=== PATIENT | male | born 1995 | race Caucasian/White ===

== ENCOUNTER 2019-10-03 21:10 | Emergency (ER) | payer SELFPAY ==
[2019-10-03 21:19] VITALS: BP 129/87; PULSE 88; RESP 18; TEMP 36.6; O2SAT 100; BMI 16.9
[2019-10-03] MEDS: diphenhydrAMINE 50 mg/mL SDV 1mL IVP (21:30)
[2019-10-03] MEDS: sodium chloride 0.9% 1,000 ML 999 ML IV (21:30)
[2019-10-03 21:31] VITALS: BP 130/81; PULSE 75; RESP 17; O2SAT 99
--- NOTE | 2019-10-03 21:45 | ED_ITS ---
HPI - Allergic Reaction General: Chief complaint: Allergic Reaction Stated complaint: bee sting/allergic Time Seen by Provider: 10/03/19 21:22 Source: patient Mode of arrival: ambulatory Limitations: no limitations History of Present Illness: MD complaint: allergic reaction Onset (ago): hour(s) Exposure: insect bite Known history of allergy to: 24-year-old male who states he had while staying hour before arrival states he started have some slight swelling of the site all some difficulty breathing. Patient took Benadryl at home. Patient states he still has some scratchiness in his throat but he is in no distress here. He has no signs of anaphylaxis currently. Associated symptoms: Deny abdominal pain, nausea or vomiting Severity: mild Treatment prior to arrival: benadryl Review of Systems Const: Denies: fever(s), chills, body aches or change in appetite Eyes: Denies: blurry vision or eye discomfort ENMT: Denies: throat pain or dental pain Card: Denies: chest pain Resp: Reports: dyspnea GI: Denies: abdominal pain, nausea, vomiting or diarrhea : Denies: dysuria Musc: Denies: neck pain or back pain Skin/Breast: Denies: rash Neuro: Denies: headache(s) Psych: Denies: depression Akin/Lymph: Denies: easy bruising All/Imm: Denies: urticaria Physical Exam Const: COMMON NORMALS: no acute distress, patient oriented x3 and healthy appearing HENMT: COMMON NORMALS: normocephalic and atraumatic HEAD & SCALP: normocephalic and atraumatic Eye: COMMON NORMALS: Equal, round and reactive pupils present and EOMs intact bilaterally PUPIL: Yes Equal, round and reactive pupils present Neck/C-Spine: COMMON NORMALS: full ROM and supple Chest: COMMONS NORMALS: normal inspection of the chest and normal palpation of entire chest wall Resp: COMMON NORMALS: normal respiratory effort, No retractions, No use of accessory muscles and clear to auscultation bilaterally AUSCULTATION: clear to auscultation bilaterally Cardio: COMMON NORMALS: regular rate, regular rhythm and No murmurs present (Cardio) RATE: regular rate RHYTHM: regular rhythm GI: COMMON NORMALS: Normal to inspection, nondistended, normoactive bowel sounds present, Soft to palpation, non-tender and no masses PALPATION: Yes Soft to palpation Extremity: COMMON NORMALS: normal to inspection and full ROM Neuro: COMMON NORMALS: patient oriented x3, moves all extremities and no focal motor deficits Psych: COMMON NORMALS: mental status grossly normal, Normal thought process present and cooperative THOUGHT PROCESS: Normal thought process present Skin: COMMON NORMALS: no rashes or lesions noted and no wounds NARRATIVE SKIN EXAM: To wasp stings to lower leg on the left. Slight erythema GENERAL SKIN EXAM: no rashes or lesions noted Course Vital Signs: Vital signs: Vital Signs Temperature 97.8 F 10/03/19 21:19 Pulse Rate 65 10/03/19 22:20 Respiratory Rate 18 10/03/19 22:20 Blood Pressure 116/76 10/03/19 22:20 Pulse Oximetry 99 10/03/19 22:20 MDM - Allergic Reaction MDM Narrative: Medical decision making narrative: Patient presents with an allergic reaction from an insect sting. Patient has no signs of difficulty breathing or anaphylaxis. Patient given Benadryl and Solu-Medrol here and feels improved. He is stable for discharge is return if worsening. Discharge Plan Discharge Patient Disposition: Home, Self-Care Clinical Impression: Allergic reaction Qualifiers: Encounter type: initial encounter Qualified Code(s): T78.40XA - Allergy, unspecified, initial encounter Condition: Stable Discharge Orders: Discharge Order (Routine); Ordered 10/03/19 Ordered By: Deion Young Discharge Diet: Advance as tolerated Discharge Activity: Resume usual activity Patient Instructions: Allergic Reaction Coding Level of Care Code ED Cryptologic Linguist for Saad Fwconstantine Exam Comprehensive
[2019-10-03 22:20] VITALS: BP 116/76; PULSE 65; RESP 18; O2SAT 99
[2019-10-03 22:41] VITALS: BP 120/81; PULSE 59; RESP 17; O2SAT 100
== END 2019-10-03 22:42 | disposition home or self-care (01) ==
LOC: ER 22:45
PROVIDERS: Emergency Provider Emergency Medicine
DX: T78.40XA Allergy, unspecified, initial encounter (principal)
CPT/HCPCS: 12345; 96361; 96374; 96375; 99282; 99283; J1200; J2930; J7030

== ENCOUNTER 2019-11-04 16:41 | Emergency (ER) | payer SELFPAY ==
[2019-11-04 16:49] VITALS: BP 118/68; PULSE 106; RESP 18; TEMP 37; O2SAT 98; BMI 17.6
--- NOTE | 2019-11-04 17:17 | ED_ITS ---
HPI - Skin/Abscess/Foreign Bdy General: Chief complaint: Skin/Abscess/Foreign Body Stated complaint: spider bite Time Seen by Provider: 11/04/19 17:11 Source: patient Mode of arrival: ambulatory Limitations: no limitations Review of Systems General: Reports: 10 or more systems reviewed and unremarkable except in HPI and below Skin/Breast: Reports: erythema Physical Exam Const: COMMON NORMALS: no acute distress and patient oriented x3 GENERAL APPEARANCE: cooperative HENMT: COMMON NORMALS: normocephalic and Normal external nose present HEAD & SCALP: normal to inspection and normocephalic NOSE: Normal external nose present MOUTH: Normal oral and palatal mucosa present Eye: GENERAL EYE: appearance normal, both eyes and all related structures Neck/C-Spine: COMMON NORMALS: full ROM Chest: COMMONS NORMALS: normal inspection of the chest Resp: COMMON NORMALS: normal respiratory effort EFFORT & INSPECTION: Yes able to speak in complete sentences Cardio: COMMON NORMALS: regular rate and regular rhythm RATE: regular rate RHYTHM: regular rhythm GI: COMMON NORMALS: non-tender Back/Pelvis: COMMON NORMALS: thoracic and lumbar spine normal to inspection Extremity: COMMON NORMALS: normal to inspection Neuro: COMMON NORMALS: patient oriented x3 and moves all extremities Psych: COMMON NORMALS: mental status grossly normal and cooperative Skin: NARRATIVE SKIN EXAM: 12 cm area of redness to left upper thigh, 3 cm centeral induration with punctate draining lesion Procedures Abscess I/D Site: lower extremity Side (if applicable): left Local Anesthetic: lidocaine 2% Amount of anesthesia used (mL): 10 Technique: incised with #11 blade Amount of fluid expressed (mL): 5 Irrigation: Yes Packing used?: none Course Vital Signs: Vital signs: Vital Signs Temperature 98.6 F 11/04/19 16:49 Pulse Rate 106 H 11/04/19 16:49 Respiratory Rate 18 11/04/19 16:49 Blood Pressure 118/68 11/04/19 16:49 Pulse Oximetry 98 11/04/19 16:49 MDM - Skin/Abscess/Foreign Bdy MDM Narrative: Medical decision making narrative: 24-year-old male patient comes in with a abscess to the left upper thigh. On exam patient has a large area of redness approximately 12 cm with a center indurated lesion. Vital signs are normal. Respirations are even lungs are clear to auscultation. Differential diagnosis includes abscess, cellulitis, local reaction insect bite. Under local anesthetic of 2% lidocaine and incision and drainage was done. Patient tolerated well. Reviewed post procedure care and need for follow-up. Patient reported understanding. Discharge Plan Discharge Patient Disposition: Home Clinical Impression: Abscess of skin or subcutaneous tissue Qualifiers: Site of cutaneous abscess: extremity Site of cutaneous abscess of extremity: lower extremity Laterality: left Qualified Code(s): L02.416 - Cutaneous abscess of left lower limb Condition: Stable Prescriptions: New Bactrim DS 800-160 mg tablet 1 tab PO BID 10 Days Qty: 20 RF: 0 ibuprofen 600 mg tablet 600 mg PO Q6H PRN (Reason: fever or pain) Qty: 20 RF: 0 Discharge Orders: Discharge Order (Routine); Ordered 11/04/19 Ordered By: Artur Bo Discharge Diet: Usual diet Discharge Activity: Increase activity as tolerated Patient Instructions: Abscess Incision and Drainage (ED) Activity Restrictions/Additional Instructions: Off work tomorrow. Use warm moist packs to the area. Drink plenty of water with medication. Acetaminophen and ibuprofen for pain. Take antibiotics as directed. Follow-up with primary care as needed. Return to the emergency department for new concerns. Stand Alone Forms: Work/School Release Coding Level of Care Code ED Sow Farm Barn Technician for Saad Fwconstantine Exam Comprehensive
[2019-11-04] MEDS: sulfamethoxazole-trimeth DS 160-800 mg Tablet 1 TAB PO (17:27)
[2019-11-04] MEDS: HYDROcodone-acetaminophen 7.5-325 mg Tablet 1 TAB PO (17:27)
[2019-11-04] MEDS: lidocaine 2% INJ 20 mL INJECTION (17:28)
[2019-11-04 18:04] VITALS: BP 121/62; PULSE 90; RESP 18; O2SAT 99
== END 2019-11-04 18:01 | disposition home or self-care (01) ==
PROVIDERS: Emergency Provider Nurse Practitioner Family
DX: L02.416 Cutaneous abscess of left lower limb (principal)
CPT/HCPCS: 10060; 12345; 87070; 87077; 87186; 87205; 99282; 99283

== ENCOUNTER 2020-01-18 18:28 | Emergency (ER) | payer SELFPAY ==
[2020-01-18 18:31] VITALS: BP 127/73; PULSE 92; RESP 16; TEMP 36.4; O2SAT 100; BMI 17.2
--- NOTE | 2020-01-18 18:36 | XR_ITS ---
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 This appliance ap pears proper in position and is intact. The joint spaces appear well preserved and no focal bony abnormality is identified. No soft tissue abnormality. XR/XR knee RT 3V* [id number] IMPRESSION: Status post intramedullary anastacia as above. No acute abnormality identified.
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
[2020-01-18] MEDS: HYDROcodone-acetaminophen 5-325 mg Tablet 1 TAB PO (19:26)
--- NOTE | 2020-01-19 09:42 | DCPLANNER ---
bridge manager had message to schedule a follow up appointment for patient with ortho. bridge manager called the ortho clinic, spoke with Pat, gave clinic patients information. bridge manager was told that patients information would be printed and reviewed. Clinic will call patient with appointment information.
--- NOTE | 2020-01-26 15:32 | DCPLANNER ---
Patient had a follow up appointment scheduled for 01.23.20 with ortho - patient did attend appointment.
== END 2020-01-18 19:46 | disposition home or self-care (01) ==
PROVIDERS: Emergency Provider Emergency Medicine
DX: S83.91XA Sprain of unspecified site of right knee, initial encounter (principal); X58.XXXA Exposure to other specified factors, initial encounter
CPT/HCPCS: 12345; 29530; 73562; 99283; E0114

== ENCOUNTER → 2020-01-23 10:14 | Outpatient (BNVA) | payer SELFPAY | PROVIDERS: Referring Provider Emergency Medicine; Visit Provider Specialist | DX: S83.91XA Sprain of unspecified site of right knee, initial encounter (principal); X58.XXXA Exposure to other specified factors, initial encounter | CPT/HCPCS: 73560; 73565 ==

== ENCOUNTER 2020-01-23 13:47 | Outpatient (CLI) | payer SELFPAY | END 2020-01-23 13:48 | disposition home or self-care (01) | LOC: SPT 13:48 | PROVIDERS: Visit Provider Specialist | DX: Z46.89 Encounter for fitting and adjustment of other specified devices (principal); M25.561 Pain in right knee | CPT/HCPCS: L1812 ==

== ENCOUNTER 2020-01-25 16:39 | Outpatient (CLI) | payer SELFPAY ==
--- NOTE | 2020-01-25 16:45 | MR_ITS ---
WS: [id number] MRI RIGHT KNEE NONCONTRAST TECHNIQUE: Axial PD, coronal PD fat sat, coronal PD, sagittal PD, and sagittal PD fat-sat images obta ined. CLINICAL INFORMATION: M25.569 - Pain in unspecified knee COMPARISON: None. FINDINGS: Postoperative changes intramedullary anastacia and screw fixation right femur. Susceptibility artifact from hardware degrades some images. Distal quadriceps and patella tendons are intact. Hypertrophic patella. Anterior and posterior cruci ate ligaments are intact. Mild chronic narrowing of the medial and lateral joint compartments worse i nvolving the medial joint compartment. Mild chronic thinning of the meniscus. No acute appearing meni scal tears. Normal patella cartilage. Patella is normal. No subchondral edema. Normal popliteal fossa. Medial and lateral collateral ligaments appear normal. No soft tissue edema. No significant joint effusion. MR/MR knee RT wo con* [id number] IMPRESSION: 1. Postoperative changes intramedullary anastacia and screw fixation right femoral s haft and distal femur. Beam hardening artifact degrades some images. 2. Normal anterior and posterior cruciate ligament. 3. Mild chronic thinning of the medial joint compartment. No acute appearing m eniscal tears. 4. Normal patella cartilage. Hypertrophic patella. 5. Medial and lateral collateral ligaments appear intact. No soft tissue edema . 6. No significant joint effusion.
== END 2020-01-25 16:40 | disposition home or self-care (01) ==
LOC: RADSHAW 16:42
PROVIDERS: Visit Provider Specialist
DX: M25.561 Pain in right knee (principal)
CPT/HCPCS: 73721

== ENCOUNTER 2020-04-29 13:43 | Emergency (ER) | payer SELFPAY ==
[2020-04-29 13:57] VITALS: BP 119/74; PULSE 71; RESP 14; TEMP 36.8; O2SAT 97; BMI 17.6
[2020-04-29 14:10] VITALS: BP 120/75; PULSE 72; RESP 14; O2SAT 99
--- NOTE | 2020-04-29 14:26 | ED_ITS ---
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 Sustained a small laceration to the dorsal surface of the left middle finger. He is here to be evaluated. No other injuries. Onset (ago): minute(s) (20) Associated symptoms: Denies chills, fever(s), nausea or vomiting Review of Systems General: Reports: 10 or more systems reviewed and unremarkable except in HPI and below Const: Denies: fever(s), chills or body aches Eyes: Denies: change in vision or blurry vision ENMT: Denies: throat pain, enlarged tonsils, odynophagia, hoarseness, mouth pain or swelling of lips/tongue Card: Denies: palpitations, irregular heart rhythm, edema or swelling of feet/ankles Resp: Denies: dyspnea, productive cough or non-productive cough GI: Denies: abdominal pain, nausea or vomiting : Denies: flank pain, dysuria, urinary frequency, urinary urgency or urinary hesitancy Musc: Denies: neck pain, back pain or extremity swelling Skin/Breast: Denies: rash, pruritus or erythema Neuro: Denies: headache(s), numbness in extremities or weakness in extremities Endo: Denies: polyuria, polydipsia or tired all the time [facility] ED PFSH: Social History Smoking and tobacco status: current every day smoker cigarettes Alcohol intake: never Physical Exam Const: COMMON NORMALS: no acute distress, average body habitus and patient oriented x3 Resp: COMMON NORMALS: normal respiratory effort, No retractions, No use of accessory muscles and clear to auscultation bilaterally AUSCULTATION: clear to auscultation bilaterally Cardio: COMMON NORMALS: regular rate, regular rhythm, S1 normal heart sound present and S2 normal heart sound present RATE: regular rate RHYTHM: regular rhythm HEART SOUNDS: S1 normal heart sound present and S2 normal heart sound present GI: COMMON NORMALS: Normal to inspection, nondistended, normoactive bowel soun ds present, Soft to palpation and non-tender PALPATION: Yes Soft to palpation Extremity: NARRATIVE EXTREMITY EXAM: 1 cm linear laceration along the skin crease just proximal to his PIP on the dorsal surface of his left middle finger. Nonbleeding, clean. Neuro: COMMON NORMALS: patient oriented x3 Procedures Laceration Laceration 1: Site: hand Side (If applicable): left Size (cm): 1 Description: linear and clean Depth: simple, single layer Pre-repair: irrigated extensively Skin layer closed with: other (Tissue adhesive and Steri-Strips) Course Vital Signs: Vital signs: Vital Signs Temperature 98.2 F 04/29/20 13:57 Pulse Rate 72 04/29/20 14:10 Respiratory Rate 14 04/29/20 14:10 Blood Pressure 120/75 04/29/20 14:10 Pulse Oximetry 99 04/29/20 14:10 MDM - Wound/Laceration MDM Narrative: Medical decision making narrative: 24-year-old male who sustained a superficial laceration to his left middle finger. The wound was cleaned, closed with tissue adhesive, and Steri-Strips. The finger was placed in a finger splint to protect the wound. Patient was given a dose of tetanus toxoid as he cannot remember his last tetanus shot. He is discharged home with wound care instructions and to follow-up with his primary care provider. Discharge Plan Discharge Patient Disposition: Home Clinical Impression: Finger laceration Qualifiers: Encounter type: initial encounter Finger: middle finger Damage to nail status: without damage Foreign body presence: without foreign body Laterality: left Qualified Code(s): S61.213A - Laceration without foreign body of left middle finger without damage to nail, initial encounter Condition: Stable Prescriptions: Continued (DME) hinged knee brace See Rx Instructions .Route .MEDSUPPLY Qty: 1 RF: 0 ibuprofen 600 mg tablet 600 mg PO Q6H PRN (Reason: fever or pain) Qty: 20 RF: 0 Discharge Orders: Discharge ED (Routine); Ordered 04/29/20 Ordered By: Renea Reeves Discharge Diet: Usual diet Discharge Activity: Resume usual activity Patient Instructions: Finger Laceration (ED), Skin Adhesive Care (ED) Activity Restrictions/Additional Instructions: Return for any new or worsening symptoms. Follow-up with your primary care provider within 3 days. Keep the wound clean and dry. The Steri-Strips will fall off on their own in a few days. Keep the wound clean and dry. Coding Level of Care Code ED Sports Marketing Internship for Saad Infante
[2020-04-29] MEDS: tetanus-dipt-pertussis 0.5 mL SDV IM (14:30)
== END 2020-04-29 14:42 | disposition home or self-care (01) ==
LOC: ER 14:39
PROVIDERS: Emergency Provider Family Medicine
DX: S61.213A Laceration without foreign body of left middle finger without damage to nail, initial encounter (principal); F17.210 Nicotine dependence, cigarettes, uncomplicated; W26.8XXA Contact with other sharp object(s), not elsewhere classified, initial encounter; Z23 Encounter for immunization
CPT/HCPCS: 12001; 90471; 90715; 99282

== ENCOUNTER 2020-06-05 20:39 | Emergency (ER) | payer SELFPAY ==
[2020-06-05 20:59] VITALS: BP 112/72; PULSE 65; RESP 18; TEMP 36.9; O2SAT 97; BMI 17.8
--- NOTE | 2020-06-05 23:09 | W.ED.SKABFB ---
HPI - Skin/Abscess/Foreign Bdy General: Chief complaint: Skin/Abscess/Foreign Body Stated complaint: staf infection Time Seen by Provider: 06/05/20 22:56 Source: patient Mode of arrival: ambulatory Limitations: no limitations History of Present Illness: HPI narrative: 24-year-old male with painful lump and redness of his lower abdomen for the past 2 to 3 days. He has not tried taking anything for symptoms yet. He has had similar bumps here and there but none with redness and pain around it. Denies any previous injury. No fever, nausea, vomiting or diarrhea. No other rash. Associated symptoms: Deny chills, fever(s) or nausea Review of Systems General: Reports: 10 or more systems reviewed and unremarkable except in HPI and below Const: Denies: fever(s), chills, body aches, change in appetite, malaise or night sweats Eyes: Denies: change in vision, blurry vision or blind spots ENMT: Denies: throat pain or odynophagia Card: Denies: palpitations, irregular heart rhythm or edema Resp: Denies: dyspnea, productive cough or non-productive cough GI: Reports: abdominal pain; Denies: nausea or vomiting : Denies: flank pain, difficulty urinating, dysuria or urinary urgency Musc: Denies: neck pain or back pain Skin/Breast: Reports: erythema, skin pain, skin tenderness, skin swelling and sores Neuro: Denies: headache(s), numbness in extremities or weakness in extremities PFSH ED PFSH: Social History Smoking and tobacco status: current every day smoker cigarettes Alcohol intake: never Physical Exam Const: COMMON NORMALS: no acute distress, patient oriented x3 and healthy appearing GENERAL APPEARANCE: cooperative, comfortable and well kempt; not in distress, not anxious, not combative, not ill appearing and not frail appearing HENMT: COMMON NORMALS: normocephalic and atraumatic HEAD & SCALP: normal to inspection, normocephalic and atraumatic FACE & SINUS: normal facial exam, sinuses nontender and face symmetric Eye: COMMON NORMALS: Equal, round and reactive pupils present, EOMs intact bilaterally, conjunctivae normal and no scleral icterus CONJUNCTIVA: Yes conjunctivae normal PUPIL: Yes Equal, round and reactive pupils present Resp: COMMON NORMALS: normal respiratory effort EFFORT & INSPECTION: Yes able to speak in complete sentences, No tachypneic and No respiratory distress GI: COMMON NORMALS: Soft to palpation, non-tender and No hepatosplenomegaly present PALPATION: Yes Soft to palpation and Yes No hepatosplenomegaly present Neuro: COMMON NORMALS: patient oriented x3 Psych: APPEARANCE: Yes well kempt Skin: SKIN IMAGES (MALE): 1. 1.5 cm indurated, tender, subcutaneous nodule with surrounding erythema. No fluctuance. No pointing. No blister. GENERAL SKIN EXAM: erythema, no fluctuance and induration LESIONS: lesion noted See above. Course Vital Signs: Vital signs: Vital Signs Temperature 98.4 F 06/05/20 20:59 Pulse Rate 68 06/05/20 23:44 Respiratory Rate 18 06/05/20 23:44 Blood Pressure 132/87 06/05/20 23:44 Pulse Oximetry 99 06/05/20 23:44 MDM - Skin/Abscess/Foreign Bdy MDM Narrative: Medical decision making narrative: 24-year-old male with soft tissue infection of his abdominal wall. He has an indurated area 1.5 cm, without any fluctuance or pointing. There is surrounding erythema. His vital signs are normal, he is nontoxic-appearing We will give him a dose of IM Rocephin and p.o. dose of Bactrim Prescription for 7-day course of Bactrim and doxycycline. Discussed the importance of follow-up urgent care here in the ED or with his PCP within 24 hours to make sure symptoms are improving. He is to return immediately to the ER if develop fever, sudden worsening of redness or swelling. Differential Diagnosis: Skin/Abscess Differential Diagnosis: Likely abscess of skin or subcutaneous tissue, cellulitis, insect bites and impetigo Medical Records: Attestation: I reviewed the patient's medical records. Lab Data: Attestation: I reviewed the patient's lab results. Discharge Plan Discharge Patient Disposition: Home Clinical Impression: Abscess of skin or subcutaneous tissue Qualifiers: Site of cutaneous abscess: trunk Site of cutaneous abscess of trunk: abdominal wall Qualified Code(s): L02.211 - Cutaneous abscess of abdominal wall Condition: Stable Prescriptions: New Bactrim DS 800-160 mg tablet 1 tab PO BID 7 Days Qty: 14 RF: 0 doxycycline hyclate 100 mg capsule 100 mg PO BID 7 Days Qty: 14 RF: 0 No Action (DME) hinged knee brace See Rx Instructions .Route .MEDSUPPLY Qty: 1 RF: 0 ibuprofen 600 mg tablet 600 mg PO Q6H PRN (Reason: fever or pain) Qty: 20 RF: 0 Discharge Orders: Discharge ED (Routine); Ordered 06/05/20 Ordered By: Veronica Haas Discharge Diet: Advance as tolerated Discharge Activity: Resume usual activity Patient Instructions: Abscess (ED) Activity Restrictions/Additional Instructions: Follow-up with your PCP or to urgent care within 24 hours to make sure the infection is improving. Make sure to finish all of the antibiotics. Take [id number] Tylenol or ibuprofen for pain. Return immediately to the ER if you develop a fever, sudden worsening redness and swelling, vomiting, or any other concerning changes. 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
[2020-06-05] MEDS: sulfamethoxazole-trimeth DS 160-800 mg Tablet 1 TAB PO (23:41)
[2020-06-05 23:44] VITALS: BP 132/87; PULSE 68; RESP 18; O2SAT 99
== END 2020-06-05 23:44 | disposition home or self-care (01) ==
PROVIDERS: Emergency Provider Family Medicine
DX: L02.211 Cutaneous abscess of abdominal wall (principal); F17.210 Nicotine dependence, cigarettes, uncomplicated
CPT/HCPCS: 96372; 99283; J0696

== ENCOUNTER 2020-08-03 02:16 | Emergency (ER) | payer SELFPAY ==
[2020-08-03 02:23] VITALS: BP 119/73; PULSE 70; RESP 15; TEMP 36.9; O2SAT 100; BMI 18.4
[2020-08-03 02:26] VITALS: PULSE 63; RESP 15; O2SAT 100
--- NOTE | 2020-08-03 02:27 | W.ED.EYEPROB ---
HPI - Eye Problem General: Chief complaint: Eye Problems Stated complaint: poss eye infection Time Seen by Provider: 08/03/20 02:17 History of Present Illness: HPI Narrative: Patient is a 25-year-old male comes to the ED with right eye complaint. He says approximately 2 days ago he started developing right eye burning and redness. He says he wakes up in the morning and he has crusty and group like drainage of right eye. He denies any foreign body injury, trauma to right eye to cause symptoms. Patient says that one of his coworkers had pinkeye approximately 1 to 2 weeks ago. He denies any vision changes. Associated symptoms: Denies fever(s), headache(s), nausea, neck pain or vomiting Review of Systems Const: Denies: fever(s), chills or fatigue Eyes: Reports: eye discomfort (right eye), eye discharge (purulent/crusty drainage in mornings) and eye redness; Denies: change in vision ENMT: Denies: throat pain, odynophagia, nasal discharge or nasal congestion Card: Denies: chest pain, palpitations, edema, swelling of feet/ankles, dyspnea on exertion or orthopnea Resp: Denies: dyspnea, productive cough or non-productive cough GI: Denies: abdominal pain, nausea, vomiting, diarrhea, constipation or hematochezia : Denies: flank pain, difficulty urinating, dysuria or hematuria Musc: Denies: neck pain, back pain or extremity swelling Skin/Breast: Denies: rash or new lesions Neuro: Denies: headache(s), numbness in extremities or weakness in extremities PFS ED PFSH: Social History Smoking and tobacco status: current every day smoker cigarettes Alcohol intake: never Physical Exam Const: COMMON NORMALS: no acute distress, patient oriented x3, healthy appearing and alert GENERAL APPEARANCE: cooperative and comfortable HENMT: COMMON NORMALS: normocephalic HEAD & SCALP: normocephalic MOUTH: Normal oral and palatal mucosa present THROAT: posterior oropharynx normal and uvula midline Eye: COMMON NORMALS: Equal, round and reactive pupils present and EOMs intact bilaterally EYELID: eyelid abnormality right upper eyelid erythema (medial aspect eyelid) and swelling (medial aspect eyelid) CONJUNCTIVA: Yes conjunctival abnormal positive right conjunctival injection localized (medial aspect eye) PUPIL: Yes Equal, round and reactive pupils present Neck/C-Spine: COMMON NORMALS: supple GENERAL: Yes normal visual inspection Resp: COMMON NORMALS: normal respiratory effort, No retractions, No use of accessory muscles and clear to auscultation bilaterally AUSCULTATION: clear to auscultation bilaterally Cardio: COMMON NORMALS: regular rate, regular rhythm, S1 normal heart sound present, S2 normal heart sound present, No gallops present (Cardio), No clicks present (Cardio), No murmurs present (Cardio) and Peripheral pulses 2+ throughout RATE: regular rate RHYTHM: regular rhythm HEART SOUNDS: S1 normal heart sound present and S2 normal heart sound present PERIPHERAL PULSES: Peripheral pulses 2+ throughout GI: COMMON NORMALS: Normal to inspection, nondistended, normoactive bowel sounds present, Soft to palpation, non-tender and no masses PALPATION: Yes Soft to palpation : COMMON NORMALS: Yes no CVA tenderness BLADDER/KIDNEY EXAM: Yes no CVA tenderness Back/Pelvis: COMMON NORMALS: no CVA tenderness Extremity: COMMON NORMALS: normal to inspection Neuro: COMMON NORMALS: patient oriented x3 and moves all extremities SENSORIUM/ORIENTATION: Yes alert Skin: GENERAL SKIN EXAM: dry skin Course Vital Signs: Vital signs: Vital Signs Temperature 98.5 F 08/03/20 02:23 Pulse Rate 63 08/03/20 02:26 Respiratory Rate 15 08/03/20 02:26 Blood Pressure 119/73 08/03/20 02:23 Pulse Oximetry 100 08/03/20 02:26 MDM - Eye Problem MDM Narrative: Medical decision making narrative: Patient is a 25-year-old male comes to the ED with right eye complaints. Patient says he was recently exposed to somebody with pinkeye and he started to develop symptoms of eye redness and discharge/dry crusty eyes in the morning. Denies any eye injury, foreign body in eye or vision changes. Exam findings suggestive of conjunctivitis. Patient diagnosed with pinkeye and given an application of Maxitrol eye ointment in right eye here in the ED. Patient was discharged home with Maxitrol eyedrop prescription. He is to follow-up with PCP in 7 to 10 days reevaluation. Return to ED precautions given. Patient understood agree with plan. Discharge Plan Discharge Patient Disposition: Home Clinical Impression: [place] eye Qualifiers: Laterality: right Qualified Code(s): H10.021 - Other mucopurulent conjunctivitis, right eye Condition: Stable Prescriptions: New Maxitrol 3.5mg/mL-10,000 unit/mL-0.1 % drops,suspension 1 drp ophthalmic (eye) Q6H 7 Days Qty: 5 RF: 0 No Action (DME) hinged knee brace See Rx Instructions .Route .MEDSUPPLY Qty: 1 RF: 0 ibuprofen 600 mg tablet 600 mg PO Q6H PRN (Reason: fever or pain) Qty: 20 RF: 0 Discharge Orders: Discharge ED (Routine); Ordered 08/03/20 Ordered By: Marv Cain Discharge Diet: Regular Discharge Activity: Resume usual activity Activity Restrictions/Additional Instructions: Follow-up with medical provider as directed in 7 to 10 days. If you are not seeing any improvement after 3 days of using eyedrops return to the ED your medical provider immediately for reevaluation. Take medications as prescribed. Return to the ER or your medical provider if condition worsens. Please read and understand discharge instructions. Thank you for choosing [facility] for your healthcare needs today. Please realize this is an emergency room and that we are providing you with a medical screening exam and this may not be complete and all inclusive of all the testing and or work up that you may need to determine your ailment or severity of your illness. It is very important that you follow up as instructed or that you return to the Emergency Department should you have concerns or if your condition changes or worsens in any way. Coding Level of Care Code ED Director Of Religious Activities for Saad Infante Exam Comprehensive
[2020-08-03] MEDS: neomycin-poly-dex Op oint 3.5 gm 1 APPLIC EYE-RIGHT (02:45)
== END 2020-08-03 02:47 | disposition home or self-care (01) ==
PROVIDERS: Emergency Provider Physician Assistant
DX: H10.021 Other mucopurulent conjunctivitis, right eye (principal); F17.210 Nicotine dependence, cigarettes, uncomplicated
CPT/HCPCS: 99281

== ENCOUNTER 2021-01-18 23:15 | Emergency (ER) | payer SELFPAY ==
[2021-01-18 23:27] VITALS: BP 124/51; PULSE 97; RESP 18; TEMP 36.8; O2SAT 98; BMI 16.7
[2021-01-19] MEDS: tetracaine 0.5% Op Soln 4 mL Btl 2 DROP EYE-LEFT (00:43)
[2021-01-19] MEDS: eye irrigation 30 mL Btl EYE-LEFT (00:43)
[2021-01-19] MEDS: fluorescein 1 mg Strip EYE-LEFT (00:43)
[2021-01-19] MEDS: oxyCODONE-APAP 5-325 mg Tablet 2 TAB PO (01:23)
[2021-01-19] MEDS: ciprofloxacin 0.3% Op Soln 2.5 mL Btl 1 DROP EYE-LEFT (01:23)
--- NOTE | 2021-01-19 17:13 | W.ED.EYEPROB ---
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 He picked up a second long months, felt something in his eye, and has not had pain, redness, and tearing ever since. He can still see, but his vision is blurry he is a bit light sensitive. chief complaint: eye pain, eye redness, eye injury and foreign body Onset (ago): hour(s) Onset description: sudden Duration: constant Location: left eye Eye Symptoms: burning, redness, pain and foreign body sensation Place: work Mechanism: other Severity: moderate If Pain, Quality: sharp and burning Context: other Associated symptoms: Denies cough, fever(s), headache(s), nausea or vomiting Treatments Prior to Arrival: irrigated eye Review of Systems Const: Denies: fever(s) GI: Denies: nausea or vomiting Neuro: Denies: headache(s) PFSH ED PFSH: Social History Smoking and tobacco status: current every day smoker cigarettes Alcohol intake: never Physical Exam Const: COMMON NORMALS: no acute distress GENERAL APPEARANCE: cooperative HENMT: COMMON NORMALS: normocephalic and Normal external nose present HEAD & SCALP: normocephalic FACE & SINUS: normal facial exam NOSE: Normal external nose present Eye: COMMON NORMALS: Equal, round and reactive pupils present GENERAL EYE: normal light reflex VISUAL ACUITY: Yes visual acuity left eye (Diffusely but intact) CONJUNCTIVA: Yes conjunctival abnormal positive left CORNEA: Yes fluorescein used and other PUPIL: Yes Equal, round and reactive pupils present DIRECT OPHTHALMOSCOPY: Yes normal light reflex OTHER: [place] lamp exam with fluorescein after tetracaine shows a large corneal abrasion centrally. Pain is relieved with tetracaine. Visual acuity improved with tetracaine. Resp: COMMON NORMALS: normal respiratory effort Cardio: COMMON NORMALS: regular rate and regular rhythm RATE: regular rate RHYTHM: regular rhythm Course Vital Signs: Vital signs: Vital Signs Temperature 98.2 F 01/18/21 23:27 Pulse Rate 97 01/18/21 23:27 Respiratory Rate 18 01/18/21 23:27 Blood Pressure 124/51 01/18/21 23:27 Pulse Oximetry 98 01/18/21 23:27 MDM - Eye Problem MDM Narrative: Medical decision making narrative: Corneal abrasion treated with antibiotic drops. Pain medication given. Close ophthalmology follow-up. Case management referral has been placed. Discharge Plan Discharge Patient Disposition: Home Clinical Impression: Corneal abrasion Qualifiers: Encounter type: initial encounter Laterality: left Qualified Code(s): S05.02XA - Injury of conjunctiva and corneal abrasion without foreign body, left eye, initial encounter Condition: Stable Prescriptions: No Action (DME) hinged knee brace See Rx Instructions .Route .MEDSUPPLY Qty: 1 RF: 0 ibuprofen 600 mg tablet 600 mg PO Q6H PRN (Reason: fever or pain) Qty: 20 RF: 0 Discharge Orders: Discharge ED (Routine); Ordered 01/19/21 Ordered By: Gary Marie Referrals: Osvaldo Bhatia MD [Physician] - 1-3 days Discharge Diet: Usual diet Discharge Activity: Increase activity as tolerated Patient Instructions: Corneal Abrasion (ED), Opioid Safety Activity Restrictions/Additional Instructions: Use the eyedrops you were given in the ER twice daily until empty. Pain medication is to help you sleep. Follow-up with ophthalmology next week. Call Thursday morning to let them know you were seen here, and they will help make an appointment for you. Return for worsening vision, worsening pain despite treatment, other concerning symptoms. 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
--- NOTE | 2021-01-22 12:50 | DCPLANNER ---
manager multicultural had message to schedule a follow up appointment with ophthomology. manager multicultural called phone number [phone], phone was not is service. manager multicultural called phone number [phone], spoke with June. manager multicultural asked if patient wanted sample case porter to schedule a follow up appointment for patient. manager multicultural was told that patient did not want the referral at this time.
== END 2021-01-19 01:35 | disposition home or self-care (01) ==
PROVIDERS: Emergency Provider Emergency Medicine
DX: S05.02XA Injury of conjunctiva and corneal abrasion without foreign body, left eye, initial encounter (principal); F17.210 Nicotine dependence, cigarettes, uncomplicated; X58.XXXA Exposure to other specified factors, initial encounter
CPT/HCPCS: 99283

== ENCOUNTER 2021-02-18 20:23 | Emergency (ER) | payer SELFPAY ==
[2021-02-18 20:36] VITALS: BP 124/72; PULSE 70; RESP 16; TEMP 36.7; O2SAT 99
--- NOTE | 2021-02-18 20:39 | USR_ITS ---
PROCEDURE INFORMATION: Exam: US Scrotum Exam date and time: 02/18/2021 8:39 PM Age: 25 years old Clinical indication: Scrotum pain; Prior surgery; Surgery date: 6+ months; Surgery type: Left varicocele surgery 2012; Patient HX: Left scrotal pain TECHNIQUE: Imaging protocol: Real-time ultrasound of the scrotum and contents with color Doppler and image documentation. COMPARISON: CR XR knees AP WB w RT lmt ORTH 01/23/2020 10:20 AM FINDINGS: Right testicle: 5.2 x 3.1 x 3.5 cm right testicle with estimated volume 30 cc. Left testicle: 4.4 x 2.6 x 3.2 cm left testicle with estimated volume 19 cc. Epididymides: 3.7 x 1.6 x 0.7 cm right epididymis. 2.5 x 1.3 x 2.1 cm left epididymis. Scrotum: 4.8 x 2.1 x 2.1 cm left varicocele. 5.0 x 2.0 x 3.0 cm left hydrocele with estimated volume 16 cc. Other findings: . US/US scrotum [id number] IMPRESSION: 1. 4.8 x 2.1 x 2.1 cm left varicocele. 2. 5.0 x 2.0 x 3.0 cm left hydrocele with estimated volume 16 cc. 3. Normal testicular perfusion bilaterally with no torsion or intrinsic testicular mass. 4. Mild atrophic left testicle compared with the right which may be secondary to varicoceles.
--- NOTE | 2021-02-18 21:56 | ED_ITS ---
HPI - Male Genitourinary General: Chief complaint: Urogenital-Male Stated complaint: Lt Testical Pain and Swelling Time Seen by Provider: 02/18/21 21:31 Source: patient Mode of arrival: ambulatory Limitations: no limitations History of Present Illness: HPI Narrative: 25-year-old male has a history of varicocele he states he had a surgery roughly 8 years ago. He states that he had an episode return was part of another surgery but has not any moved here from [place] and the #71 states that he has had increased swelling started having pain today states pain is sharp rated at 3-4 out of 10 denies any dysuria denies any vomiting denies any worsening improving factors. MD Complaint: testicle swelling Associated symptoms: Deny dysuria, nausea or vomiting Review of Systems Const: Denies: fever(s), chills, body aches or change in appetite Eyes: Denies: blurry vision or eye discomfort ENMT: Denies: throat pain or dental pain Card: Denies: chest pain Resp: Denies: dyspnea GI: Denies: abdominal pain, nausea, vomiting or diarrhea : Reports: testicular pain; Denies: dysuria Musc: Denies: neck pain or back pain Skin/Breast: Denies: rash Neuro: Denies: headache(s) Psych: Denies: depression Akin/Lymph: Denies: easy bruising All/Imm: Denies: urticaria PFSH ED PFSH: Social History Smoking and tobacco status: current every day smoker cigarettes Alcohol intake: never Physical Exam Const: COMMON NORMALS: no acute distress, patient oriented x3 and healthy appearing HENMT: COMMON NORMALS: normocephalic and atraumatic HEAD & SCALP: normocephalic and atraumatic Eye: COMMON NORMALS: Equal, round and reactive pupils present and EOMs intact bilaterally PUPIL: Yes Equal, round and reactive pupils present Neck/C-Spine: COMMON NORMALS: full ROM and supple Chest: COMMONS NORMALS: normal inspection of the chest and normal palpation of entire chest wall Resp: COMMON NORMALS: normal respiratory effort, No retractions, No use of accessory muscles and clear to auscultation bilaterally AUSCULTATION: clear t o auscultation bilaterally Cardio: COMMON NORMALS: regular rate, regular rhythm and No murmurs present (Cardio) RATE: regular rate RHYTHM: regular rhythm GI: COMMON NORMALS: Normal to inspection, nondistended, normoactive bowel sounds present, Soft to palpation, non-tender and no masses PALPATION: Yes Soft to palpation : OTHER: swelling in L testicle slight tenderness Extremity: COMMON NORMALS: normal to inspection and full ROM Neuro: COMMON NORMALS: patient oriented x3, moves all extremities and no focal motor deficits Psych: COMMON NORMALS: mental status grossly normal, Normal thought process present and cooperative THOUGHT PROCESS: Normal thought process present Skin: COMMON NORMALS: no rashes or lesions noted and no wounds GENERAL SKIN EXAM: no rashes or lesions noted Course Vital Signs: Vital signs: Vital Signs Temperature 98.1 F 02/18/21 20:36 Pulse Rate 63 02/18/21 22:09 Respiratory Rate 18 02/18/21 22:09 Blood Pressure 105/60 02/18/21 22:09 Pulse Oximetry 98 02/18/21 22:09 MDM - Male MDM Narrative: Medical decision making narrative: Patient presents here with varicocele and hydrocele to the left testicle no signs of epididymitis or torsion we will get him follow-up with Dr. Vilchis urology will place him on pain meds he is stable for discharge and return if worsening he understands agrees to plan. Discharge Plan Discharge Patient Disposition: Home Clinical Impression: Left varicocele, Hydrocele, left Condition: Stable Prescriptions: New hydrocodone-acetaminophen 5-325 mg tablet 1 tab PO Q6H PRN (Reason: pain) Qty: 14 RF: 0 No Action (DME) hinged knee brace See Rx Instructions .Route .MEDSUPPLY Qty: 1 RF: 0 ibuprofen 600 mg tablet 600 mg PO Q6H PRN (Reason: fever or pain) Qty: 20 RF: 0 Discharge Orders: Discharge ED (Routine); Ordered 02/18/21 Ordered By: Deion Young Discharge Diet: Advance as tolerated Discharge Activity: Resume usual activity Patient Instructions: Varicocele (ED), Opioid Safety Coding Level of Care Code ED Footwear Sales Coordinator for Chg Fwd Exam Comprehensive
[2021-02-18] MEDS: HYDROcodone-acetaminophen 5-325 mg Tablet 1 TAB PO ×2 (22:08→23:27)
[2021-02-18 22:09] VITALS: BP 105/60; PULSE 63; RESP 18; O2SAT 98
[2021-02-18 23:00] VITALS: BP 111/69; PULSE 63; RESP 18; O2SAT 100
--- NOTE | 2021-02-19 08:56 | DCPLANNER ---
civil engineering manager had message to schedule a follow up appointment for patient with Dr. Vilchis. civil engineering manager emailed patients information to Vidal Pittman and Julie at the office of Dr. Vilchis. Patients information will be printed for review. Clinic will call patient with appointment information.
--- NOTE | 2021-02-21 06:55 | DCPLANNER ---
Addendum entered by Sadie Payne 04/19/21 11:51: Patient had a follow up appointment scheduled for 03.21.[address] Vilchis - patient did not attend appointment. Original Note: Patient has a follow up appointment scheduled for March at 2:[address] Vilchis. Clinic will call patient with appointment information.
== END 2021-02-18 23:30 | disposition home or self-care (01) ==
PROVIDERS: Emergency Provider Emergency Medicine
DX: I86.1 Scrotal varices (principal); N43.3 Hydrocele, unspecified; F17.210 Nicotine dependence, cigarettes, uncomplicated
CPT/HCPCS: 76870; 99283

== ENCOUNTER 2021-04-16 19:07 | Emergency (ER) | payer SELFPAY ==
--- NOTE | 2021-04-16 19:16 | USR_ITS ---
PROCEDURE INFORMATION: Exam: US Scrotum Exam date and time: 04/16/2021 7:16 PM Age: 25 years old Clinical indication: Groin pain; Patient HX: Chronic left scrotal pain x 2 months. No trauma. TECHNIQUE: Imaging protocol: Real-time ultrasound of the scrotum and contents with color Doppler and image documentation. COMPARISON: US scrotum [id number] 02/18/2021 10:17 PM FINDINGS: Right testicle: Right testicle measures 4.3 x 2.6 x 3.1 cm. There is normal uniform echogenicity. No focal mass is seen in the right testicle. There is normal Doppler flow in the right testicle. Left testicle: Left testicle measures 3.9 x 2.9 x 3.2 cm. There is normal uniform echogenicity. There is no focal mass in the left testicle. There is normal Doppler flow in the left testicle. Epididymides: Normal. Scrotum: There is moderate left varicocele. There is moderate left hydrocele. US/US scrotum [id number] IMPRESSION: 1. Left hydrocele and left varicocele. 2. No evidence for testicular torsion.
[2021-04-16 19:23] VITALS: BP 110/67; PULSE 81; RESP 20; TEMP 36.4; O2SAT 98; BMI 17.7
[2021-04-16] MEDS: ketorolac 30 mg/mL INJ IM (22:17)
[2021-04-16] MEDS: acetaminophen 500 mg Tablet PO (22:17)
--- NOTE | 2021-04-16 22:27 | W.ED.GENADLT ---
HPI - General Adult General: Chief complaint: Urogenital-Male Stated complaint: Testical Pain Time Seen by Provider: 04/16/21 19:23 History of Present Illness: Patient is a 25-year-old male with a history of chronic left-sided varicocele follow-up with Dr. Vilchis presented to emergency with complaints of worsening left testicular pain and swelling that started after having sex the night prior. Patient tells me that the pain has significantly worsened [facility], the emergency room for evaluation. Patient denies any penile discharge, or trauma to the groin. Other focal complaints at this time. Onset:1 day ago Duration:1 day Location:home Severity:moderate Associated symptoms: Deny chest pain, dyspnea, nausea, rash, palpitations or vomiting Review of Systems Const: Denies: fever(s) or chills Eyes: Denies: change in vision ENMT: Denies: mouth pain Card: Denies: chest pain or palpitations Resp: Denies: dyspnea or non-productive cough GI: Denies: abdominal pain, nausea, vomiting or diarrhea : Reports: other (+L testicular pain); Denies: dysuria Musc: Denies: extremity pain Skin/Breast: Denies: rash or new lesions Neuro: Denies: weakness in extremities Psych: Reports: other (Normal mood) Akin/Lymph: Denies: easy bruising PFSH ED PFSH: Medical History Varicocele Social History Smoking and tobacco status: current every day smoker cigarettes Alcohol intake: never Physical Exam Const: COMMON NORMALS: alert HENMT: COMMON NORMALS: atraumatic HEAD & SCALP: atraumatic MOUTH: moist mucous membranes not abnormal Eye: COMMON NORMALS: EOMs intact bilaterally and conjunctivae normal CONJUNCTIVA: Yes conjunctivae normal Neck/C-Spine: COMMON NORMALS: full ROM and supple Resp: COMMON NORMALS: normal respiratory effort and clear to auscultation bilaterally AUSCULTATION: clear to auscultation bilaterally Cardio: COMMON NORMALS: regular rate RATE: regular rate GI: COMMON NORMALS: Soft to palpation and non-tender PALPATION: Yes Soft to palpation : OTHER: Normal external genitalia, +mild R testicular tenderness, no testicular swelling, no erythema. + cresmesteric reflex bilaterally Extremity: COMMON NORMALS: full ROM Neuro: SENSORIUM/ORIENTATION: Yes alert MOTOR EXAM: No Abnormal motor strength present and Other motor observations present (no focal motor deficits) Psych: COMMON NORMALS: speech normal SPEECH: Yes normal speech MOOD & AFFECT: Yes euthymic mood Course Vital Signs: Vital signs: Vital Signs Temperature 97.5 F L 04/16/21 19:23 Pulse Rate 81 04/16/21 19:23 Respiratory Rate 20 H 04/16/21 19:23 Blood Pressure 110/67 04/16/21 19:23 Pulse Oximetry 98 04/16/21 19:23 MDM - General Adult Medical Decision Making 25-year-old male presents emergency room with complaints of left-sided testicular pain started yesterday after having sex. On exam, patient has mild tenderness to palpation over the left testes. Patient has no swelling or erythema of the left testes. Cremasterics reflex appears to be intact Ultrasound showed left-sided hydrocele with varicocele. Received multiple pain medication in the emergency room with improvement symptoms. Patient elects to follow-up with Dr. Vilchis in the next few days for further evaluation. I have given patient follow up with our nurse case management to be seen Dr. Vilchis for repeat assessment. Patient aware of a call from our nurse case management to schedule for appointment(s) and verbalizes understanding of the importance of following up. Rx: Ibuprofen tylenol, and menthol PRN pain Disposition: Discharge. Patient counseled regarding diagnostic impression, treatment plan. Patient given ED strict return precautions to return for continuation, worsening, or development of new symptoms. Instructed to f/u w/ Dr. Vilchis regarding symptoms today. Patient verbalized understanding. Lab Data Radiology Impressions Scrotum Ultrasound 04/16/21 19:16 IMPRESSION: 1. Left hydrocele and left varicocele. 2. No evidence for testicular torsion. Imaging Data Other Imaging: Radiologist's impression: [address] [place] [address] Ultrasound Report Signed Patient: Isrrael Razo Unit #: [id number] : 1995 Age/Sex: 25 / M ADM Date: 04/16/21 Loc: ER Room/Bed: Attending Dr: Ordering Provider/Ordering MD: Durga Weber MD Date of Service: 04/16/21 Procedure(s): US scrotum [id number] Accession Number(s): [id number] Report Number: [id number] PROCEDURE INFORMATION: Exam: US Scrotum Exam date and time: 04/16/2021 7:16 PM Age: 25 years old Clinical indication: Groin pain; Patient HX: Chronic left scrotal pain x 2 months. No trauma. TECHNIQUE: Imaging protocol: Real-time ultrasound of the scrotum and contents with color Doppler and image documentation. COMPARISON: US scrotum [id number] 02/18/2021 10:17 PM FINDINGS: Right testicle: Right testicle measures 4.3 x 2.6 x 3.1 cm. There is normal uniform echogenicity. No focal mass is seen in the right testicle. There is normal Doppler flow in the right testicle. Left testicle: Left testicle measures 3.9 x 2.9 x 3.2 cm. There is normal uniform echogenicity. There is no focal mass in the left testicle. There is normal Doppler flow in the left testicle. Epididymides: Normal. Scrotum: There is moderate left varicocele. There is moderate left hydrocele. US/US scrotum [id number] IMPRESSION: 1. Left hydrocele and left varicocele. 2. No evidence for testicular torsion. ? Dictated By: Raul De Santiago Signed By: Raul De Santiago Signed Date/Time: 04/16/212153 DD/ 15 Discharge Plan Discharge Patient Disposition: Home Clinical Impression: Groin pain, Varicocele, Hydrocele Condition: Stable Prescriptions: New acetaminophen 500 mg tablet 500 mg PO Q6H PRN (Reason: pain) 5 Days Qty: 20 0RF Biofreeze (menthol) 5 % gel 1 ea topical BID PRN (Reason: pain) 10 Days Qty: 1 0RF Rx Instructions: please give only menthol based formulation without NSAIDS/aspirin ibuprofen 400 mg tablet 400 mg PO Q8H PRN (Reason: pain) 7 Days Qty: 21 0RF No Action (DME) hinged knee brace See Rx Instructions .Route .MEDSUPPLY Qty: 1 0RF Rx Instructions: As directed ibuprofen 600 mg tablet 600 mg PO Q6H PRN (Reason: fever or pain) Qty: 20 0RF hydrocodone-acetaminophen 5-325 mg tablet 1 tab PO Q6H PRN (Reason: pain) Qty: 14 0RF Discharge Orders: Discharge ED (Routine); Ordered 04/16/21 Ordered By: Durga Weber Referrals: Rebel Vilchis MD [Primary Care Provider] - Discharge Diet: Advance as tolerated Discharge Activity: Increase activity as tolerated Activity Restrictions/Additional Instructions: Our nurse case management will have you follow-up with Dr. Vilchis in the next few days. You would be expected to have a phone call with our nurse case management who will put you on the schedule. Take your pain medicine as instructed. Come back to the emergency room if your pain is worse, if you have any fever or chills, nausea/vomiting, or any new extreme complaints Here's your US report: [address] [address] XRay Report Signed Patient: Lamar Mercado Unit #: [id number] : 12/20/1946 Age/Sex: 74 / F ADM Date: 04/16/21 Loc: ER Room/Bed: Attending Dr: Ordering Provider/Ordering MD: Durga Weber MD Date of Service: 04/16/21 Procedure(s): XR chest 1V portable [id number] Accession Number(s): [id number] Report Number: [id number] PROCEDURE INFORMATION: Exam: XR Chest Exam date and time: 04/16/2021 6:09 PM Age: 74 years old Clinical indication: Shortness of breath; Additional info: AMS TECHNIQUE: Imaging protocol: XR of the chest. Views: 1 view. COMPARISON: CR XR chest 1V portable [id number] 03/01/2021 7:03 AM FINDINGS: Lungs: Diffuse increase in vascular markings bilaterally. Pleural spaces: Unremarkable. No pleural effusion. No pneumothorax. Heart/Mediastinum: Moderate cardiomegaly. Vasculature: Calcified plaques of thoracic aorta. Bones/joints: Left shoulder reverse arthroplasty is present. No acute thoracic fractures. XR/XR chest 1V portable [id number] IMPRESSION: Cardiomegaly with increased vascularity throughout the lungs which may represent evolving pulmonary edema features. ? Dictated By: Navjot Cartagena Signed By: Navjot Cartagena Signed Date/Time: 04/16/21 191 DD/ 180 Coding Level of Care Code ED Scientific Database Curator for Saad Infante
[2021-04-16 22:41] VITALS: BP 115/61; PULSE 78; RESP 18; TEMP 36.6; O2SAT 99
--- NOTE | 2021-04-17 07:31 | DCPLANNER ---
Addendum entered by Sadie Payne 05/10/21 13:26: Patient had a follow up appointment scheduled for 05.06.[address] Vilchis - patient did attend appointment. Addendum entered by Sadie Payne 04/23/21 07:28: Patient has a follow up appointment scheduled for Thursday, May 06, 2021 at 1:[address] Vilchis. Clinic will call patient with appointment information. Original Note: senior engineering manager had message to schedule a follow up appointment for patient with Dr. Vilchis. senior engineering manager emailed patients information to Jake Pittman at the office of Dr. Vilchis. Patients information will be printed and reviewed. Clinic will call patient with appointment information.
== END 2021-04-16 22:42 | disposition home or self-care (01) ==
PROVIDERS: Emergency Provider Emergency Medicine; PCP Urology
DX: I86.1 Scrotal varices (principal); N43.3 Hydrocele, unspecified; F17.210 Nicotine dependence, cigarettes, uncomplicated
CPT/HCPCS: 76870; 96372; 99283; J1885